=== PATIENT | female | born 1990 | race Caucasian/White ===

== ENCOUNTER 2020-02-10 18:56 | Emergency (ER) | payer SELFPAY ==
[~2020-02-10] VITALS: Ht 157.5 cm; Wt 91.6 kg
--- NOTE | 2020-02-10 19:12 | NUR ---
SHRADDHA FROM [facility], TO ER BED 7. AAOX4. NOT IN RESP DISTRESS. AMBULATORY. BROUGHT IN FOR LOWER ABDOMINAL PAIN X 1 MONTH. PT REPORTS THAT SHE HAD AN ULTRASOUND DONE TODAY AND FOUND OUT THE HER IUD IS DISLODGE. ULTRASOUND REPORT IS NOT WITH PT UPON ARRIVAL. PT RATE HER PAIN 8/10 SHARP AND STABBING IN NATURE. DENIES NAUSEA NOR VOMMITING. AWAITING MD FOR EVAL.
[2020-02-10 19:23] LABS: BASOPHILS % (AUTO) 0.2 % (0.0-2.0); EOSINOPHILS % (AUTO) 0.1 % (0.0-6.0); HEMATOCRIT 43 % (33-45); HEMOGLOBIN 14.5 g/dL (11.5-14.8); LYMPHOCYTES # (AUTO) 3.8 /CMM (0.8-4.8); LYMPHOCYTES % (AUTO) 32.7 % (20.0-44.0); MEAN CORPUSCULAR HGB CONC 34 g/dl (31.0-36.0); MEAN CORPUSCULAR VOLUME 89 fL (82-100); MONOCYTES # (AUTO) 0.6 /CMM (0.1-1.30); MONOCYTES % (AUTO) 5.6 % (2.0-12.0); NEUTROPHILS # (AUTO) 7.1 /CMM (1.8-8.9); NEUTROPHILS % (AUTO) 61.4 % (43.0-81.0); PLATELET COUNT (AUTO) 290 /CMM (150-450); RED BLOOD CELL COUNT(AUTO) 4.87 MIL/uL (4.0-5.2); WHITE BLOOD COUNT (AUTO) 11.6 K/uL (4.3-11.0)
[2020-02-10 19:29] LABS: APPEARANCE,URINE CLEAR (CLEAR); BILIRUBIN,URINE SMALL (NEGATIVE); BLOOD, URINE TRACE-INTA Ery/uL (NEGATIVE); COLOR,URINE YELLOW (YELLOW); KETONES,URINE NEGATIVE (NEGATIVE); LEUKOCYTE ESTERASE ,URINE NEGATIVE (NEGATIVE); NITRITE, URINE NEGATIVE (NEGATIVE); PH,URINE 5.5 (5.0-8.0); PROTEIN,URINE NEGATIVE (NEGATIVE); UGLUCOSE NEGATIVE (NEGATIVE); UROBILINOGEN,URINE 0.2 EU/dL (0.2)
[2020-02-10 19:39] LABS: BACTERIA,URINE Few /HPF (None Seen); RBC,URINE 0-2 /HPF (0-2); WBC,URINE 0-2 /HPF (0-3)
[2020-02-10 19:40] LABS: SQUAMOUS EPITHELIAL CELL,UR Few /HPF (None Seen)
[2020-02-10 19:58] LABS: POTASSIUM 4.1 mmol/L (3.5-5.1)
[2020-02-10 20:04] LABS: ALBUMIN 3.8 g/dL (3.4-5.0); BILIRUBIN,DIRECT 0.1 mg/dL (0.0-0.2); BILIRUBIN,TOTAL 0.4 mg/dL (0.2-1.0); TOTAL PROTEIN, SERUM 7.5 g/dL (6.4-8.2)
[2020-02-10] MEDS ORDERED: KETOROLAC TROMETHAMINE 15 MG/ML VIAL ONE (20:24)
[2020-02-10] MEDS ORDERED: KETOROLAC TROMETHAMINE INJ 30 MG/ML VIAL ONE (20:25)
[2020-02-10] MEDS ORDERED: KETOROLAC TROMETHAMINE INJ 60 MG/2 ML VIAL IM ONE (20:30)
[2020-02-10] MEDS ORDERED: KETOROLAC TROMETHAMINE INJ 30 MG/ML VIAL IV ONE (20:30)
[2020-02-10 21:14] VITALS: BP 154/89
--- NOTE | 2020-02-10 21:14 | NUR ---
Patient discharged to home in stable condition. Written and verbal after care instructions given. Patient verbalizes understanding of instruction. Pt ambulatory with a steady gait
== END 2020-02-10 21:15 | disposition home or self-care (01) ==
LOC: ER 18:56
DX: R10.2 Pelvic and perineal pain (principal); F41.9 Anxiety disorder, unspecified; F32.9 Major depressive disorder, single episode, unspecified; F84.0 Autistic disorder; F20.9 Schizophrenia, unspecified; Z98.890 Other specified postprocedural states; Z88.8 Allergy status to other drugs, medicaments and biological substances
CPT/HCPCS: 36415; 76856; 80048; 80076; 81001; 83690; 84702; 85025; 96372; 99284; J1885; 81000-TC

== ENCOUNTER 2020-02-19 21:33 | Emergency (ER) | payer OTHER ==
[~2020-02-19] VITALS: Ht 162.6 cm; Wt 91.6 kg
[2020-02-19 22:18] VITALS: BP 121/89
--- NOTE | 2020-02-19 22:24 | NUR ---
michaela staff from [facility] [phone]
--- NOTE | 2020-02-19 22:43 | NUR ---
PT TAKEN TO RADIOLOGY FOR CT
--- NOTE | 2020-02-19 22:53 | NUR ---
RETURNED FROM CT.
[2020-02-19] MEDS ORDERED: IBUPROFEN 600 MG TABLET PO ONE (23:00)
[2020-02-19] MEDS ORDERED: ONDANSETRON 4 MG TAB.RAPDIS SL ONE (23:00)
--- NOTE | 2020-02-19 23:01 | NUR ---
UNIT TRUST MANAGER ETA 20 MINS
--- NOTE | 2020-02-19 23:12 | NUR ---
PATIENT PICKED UP BY CONSUMER ANALYST
[2020-02-19] MEDS ORDERED: ONDANSETRON 4 MG TAB.RAPDIS ONE (23:39)
[2020-02-19] MEDS ORDERED: IBUPROFEN 600 MG TABLET ONE (23:39)
== END 2020-02-19 23:20 | disposition home or self-care (01) ==
LOC: ER 21:34
DX: S09.8XXA Other specified injuries of head, initial encounter (principal); F84.0 Autistic disorder; F41.9 Anxiety disorder, unspecified; F32.9 Major depressive disorder, single episode, unspecified; Z88.8 Allergy status to other drugs, medicaments and biological substances; W22.8XXA Striking against or struck by other objects, initial encounter; Y93.89 Activity, other specified; Y92.89 Other specified places as the place of occurrence of the external cause; Y99.8 Other external cause status
CPT/HCPCS: 70450; 82962; 99284; Q0162